=== PATIENT | female | born 1965 | race Caucasian/White ===

== ENCOUNTER 2017-04-26 11:32 | Emergency (ER) | payer BC ==
[2017-04-26] MEDS ORDERED: hydrOXYzine HCl 50 MG/ML SDV IM ONE (11:55)
[2017-04-26] MEDS ORDERED: predniSONE 20 MG Tab PO ONE (11:57)
[2017-04-26] MEDS ORDERED: predniSONE 20 MG Tab PO STA (12:31)
--- NOTE | 2017-04-26 13:05 | EDM.PDOC ---
ED HPI GENERAL MEDICAL PROBLEM - General Chief Complaint: General Stated Complaint: hives Time Seen by Provider: 04/26/17 13:08 Source of Information: Reports: Patient History Limitations: Reports: No Limitations - History of Present Illness INITIAL COMMENTS - FREE TEXT/NARRATIVE: Patient is a 51-year-old who is seen with chief complaint allergic reaction she has hives over her face and body this was cause by a insect bite patient has been itching over her left arm and forearm deny respiratory distress was seen by her private doctor is started on anti-histamine and steroid cream with no improvement Onset: Gradual Duration: Day(s):, Getting Worse Location: Reports: Generalized Quality: Reports: Ache, Other (Itching) Severity: Moderate Improves with: Reports: None Context: Reports: Other (Allergic incident 5) Associated Symptoms: Reports: Rash - Related Data Allergies Allergy/AdvReac Type Severity Reaction Status Date / Time aspirin Allergy Seizure Verified 04/26/17 11:36 Home Meds: Home Meds 'Dipapran' 75 mg PO BID 04/26/17 [History] 'Hydrox (Something)' 04/26/17 [History] Carpazanopeine 200 mg PO BID 04/26/17 [History] Cetirizine HCl [All Day Allergy] 10 mg PO DAILY 04/26/17 [History] Clobetasol Propionate [Temovate] 30 gm TP DAILY PRN 04/26/17 [History] Lisinopril [Zestril] 5 mg PO DAILY 04/26/17 [History] ED ROS GENERAL - Review of Systems Review Of Systems: See Below Constitutional: Reports: No Symptoms HEENT: Reports: No Symptoms Respiratory: Reports: No Symptoms Cardiovascular: Reports: No Symptoms Endocrine: Reports: No Symptoms GI/Abdominal: Reports: No Symptoms : Reports: No Symptoms Musculoskeletal: Reports: Other (Itching and rash) Skin: Reports: Pruritis, Rash Neurological: Reports: No Symptoms Psychiatric: Reports: No Symptoms Hematologic/Lymphatic: Reports: No Symptoms ED EXAM, GENERAL - Physical Exam Exam: See Below Exam Limited By: No Limitations General Appearance: Alert, WD/WN, No Apparent Distress Ears: Normal External Exam, Normal Canal, Hearing Grossly Normal, Normal TMs Ear Exam: Bilateral Ear: Auricle Normal, Canal Normal, TM normal Nose: Normal Inspection, Normal Mucosa, No Blood Throat/Mouth: Normal Inspection, Normal Lips, Normal Teeth, Normal Gums, Normal Oropharynx, Normal Voice, No Airway Compromise Head: Atraumatic, Normocephalic, Other (Rash) Neck: Other (Rash) Respiratory/Chest: No Respiratory Distress, Lungs Clear, Normal Breath Sounds, No Accessory Muscle Use, Chest Non-Tender Cardiovascular: Normal Peripheral Pulses, Regular Rate, Rhythm, No Edema, No Gallop, No JVD, No Murmur, No Rub GI/Abdominal: Normal Bowel Sounds, Soft, Non-Tender, No Organomegaly, No Distention, No Abnormal Bruit, No Mass (Female) Exam: Deferred Rectal (Female) Exam: Deferred Back Exam: Normal Inspection, Full Range of Motion, NT Extremities: Normal Inspection, Normal Range of Motion, Non-Tender, Normal Capillary Refill, No Pedal Edema Neurological: Alert, Oriented, CN II-XII Intact, Normal Cognition, Normal Gait, Normal Reflexes, No Motor/Sensory Deficits Psychiatric: Normal Affect, Normal Mood Skin Exam: Warm, Dry, Rash, Other (Itching excoriation left arm) Course - Orders/Labs/Meds Meds: Medications Discontinued Medications Generic Name Dose Route Start Last Admin Trade Name Wally PRN Reason Stop Dose Admin Hydroxyzine HCl 50 mg 04/26/17 11:55 04/26/17 12:29 Vistaril IM 04/26/17 11:56 50 mg ONETIME ONE Administration Prednisone 20 mg 04/27/17 11:57 Prednisone PO 04/27/17 11:58 ONETIME ONE Prednisone 20 mg 04/26/17 11:57 04/26/17 12:36 Prednisone PO 04/26/17 11:58 20 mg ONETIME ONE Administration Prednisone 20 mg 04/26/17 12:31 04/26/17 12:36 Prednisone PO 04/26/17 12:32 Not Given NOW STA Departure - Departure Time of Disposition: 13:06 Disposition: Home, Self-Care 01 Condition: Fair Clinical Impression: Allergy to insect bites - Discharge Information Care Plan Goals: Patient sent home on prednisone 20 once a day Vistaril 25 one tablet every 6 hours for itching she is to follow-up with primary as needed if worsening return to the ER
[2017-04-27] MEDS ORDERED: predniSONE 20 MG Tab PO ONE (11:57)
== END 2017-04-26 13:15 | disposition home or self-care (01) ==
LOC: LL.ED 11:32
DX: S50.862A Insect bite (nonvenomous) of left forearm, initial encounter (principal); Z88.6 Allergy status to analgesic agent; Z79.899 Other long term (current) drug therapy
CPT/HCPCS: 96372; 99283; A9270-GY; J3410